=== PATIENT | female | born 2000 | race Caucasian/White ===

== ENCOUNTER 2021-02-04 05:20 | Emergency (ER) | payer OTHER ==
[~2021-02-04] VITALS: Ht 170.2 cm; Wt 108.9 kg
[~2021-02-04 05:20] MED LIST: ROBITUSSIN DM S PO; SINGULAIR10 MG PO
[2021-02-04] MEDS ORDERED: ALBUTEROL2.5 MG/3 M IH (09:54)
[2021-02-04] MEDS ORDERED: TRISPEC PSE LI118 ML PO (09:54)
[2021-02-04] MEDS ORDERED: FLONASE16 GM NASAL (09:54)
[2021-02-04] MEDS ORDERED: ZITHROMAX500 MG PO (09:54)
[2021-02-04] MEDS ORDERED: ZYRTEC10 MG PO (09:54)
[2021-02-04] MEDS ORDERED: DECADRON6 MG PO (09:54)
== END 2021-02-04 10:05 | disposition home or self-care (01) ==
LOC: ER 05:20 → EMR PED 05:26 → ER 05:26 → EMR PED 10:05
DX: J40 Bronchitis, not specified as acute or chronic (principal); J30.9 Allergic rhinitis, unspecified